=== PATIENT | female | born 1980 | race African-American/Black ===

== ENCOUNTER 2018-03-06 07:31 | Emergency (ER) | END 2018-03-06 08:47 | disposition left against medical advice (07) | LOC: ERS 07:31 | DX: Z53.21 Procedure and treatment not carried out due to patient leaving prior to being seen by health care provider (principal) ==

== ENCOUNTER 2018-03-06 22:29 | Emergency (ER) | payer SELFPAY ==
[2018-03-06] MEDS ORDERED: Adacel (T-DAP) 0.5 ML SYRINGE ONE (23:33)
== END 2018-03-06 23:49 | disposition home or self-care (01) ==
LOC: SCSER 22:29
DX: L02.415 Cutaneous abscess of right lower limb (principal); I10 Essential (primary) hypertension; F17.210 Nicotine dependence, cigarettes, uncomplicated; Z23 Encounter for immunization
CPT/HCPCS: 10061; 90471; 90715

== ENCOUNTER 2018-08-22 10:11 | Emergency (ER) | payer SELFPAY | END 2018-08-22 11:35 | disposition home or self-care (01) | LOC: ERS 10:11 | DX: R05 Cough (principal); R42 Dizziness and giddiness; I10 Essential (primary) hypertension; F17.210 Nicotine dependence, cigarettes, uncomplicated; Z79.899 Other long term (current) drug therapy | CPT/HCPCS: 99283 ==